=== PATIENT | female | born 1995 | race Caucasian/White ===

== ENCOUNTER 2016-10-22 09:37 | Day surgery (SDC) | payer OTHER ==
[2016-10-17 10:18] VITALS: BMI 39.1
[~2016-10-22 09:37] MED LIST: CLINDAMYCIN 600 MG in DEXTROSE 5% IN WATER 50 ML IVPB ONE; DEXAMETHASONE SOD PHOSPHATE 10 MG/ML 1 ML VIAL IV ONE; DEXAMETHASONE SOD PHOSPHATE 4 MG/ML 1 ML VIAL IV ONE; FAMOTIDINE 20 MG/2 ML VIAL IV ONE; HYDROmorphone 1 MG/ML 1 ML SYRINGE IVP PRN; LACTATED RINGERS 1,000 ML IV SCH; LIDOCAINE 1% 20 ML VIAL (10MG/ML) FOR IV START INTRADERMA PRN; ONDANSETRON 4 MG/2 ML VIAL IVP ONE; SCOPOLAMINE 1.5MG/72HR PATCH TRANSDERM ONE
[2016-10-22] MEDS: OXYMETAZOLINE 0.05% NASL SPRAY 15 ML NASAL ONE ×5 (10:39→11:03)
[2016-10-22] MEDS ORDERED: PROPOFOL 10 MG/ML 20 ML VIAL IV ONE (11:16)
[2016-10-22] MEDS ORDERED: LIDOCAINE 1% INJ 10MG/ML (20 ML MDV) ONE (11:16)
[2016-10-22] MEDS ORDERED: SUCCINYLCHOLINE CHLORIDE 100 MG/5 ML SYR IV ONE (11:16)
[2016-10-22] MEDS ORDERED: fentaNYL (PF) 50 MCG/ML 2 ML AMP ONE (11:16)
[2016-10-22] MEDS ORDERED: MIDAZOLAM 2 MG/2 ML VIAL ONE (11:16)
[2016-10-22] MEDS ORDERED: DEXAMETHASONE SOD PHOS (MDV) 100 MG/10 ML VIAL ONE (11:16)
[2016-10-22] MEDS ORDERED: LIDOCAINE 1%-EPI 1:100,000 20 ML VIAL SQ ONE (11:36)
--- NOTE | 2016-10-22 11:53 | P.OP ---
Date of Procedure: 10/22/16 Preoperative Diagnosis: Recurrent/chronic sinusitis Inferior turbinate hypertrophy Postoperative Diagnosis: Same Procedure(s) Performed: Left-sided endoscopic sinus surgery with removal of tissue from the left maxillary sinus, left angelito bullectomy Outfracture and submucous resection of the inferior turbinates Anesthesia: DONNIE Surgeon: Abel Del Cid Estimated Blood Loss (ml): 10 Pathology: other (Sinus contents) Condition: stable Disposition: PACU Indications for Procedure: This 21-year-old white female whose had difficulties with chronic and recurrent sinusitis. She did have septoplasty and endoscopic sinus surgery 2 years ago and did improve but has had some recurrent issues with sinusitis. Computed tomography scan showed a small polyps or cysts in the left maxillary sinus recently Operative Findings: Small nasal septal spur to the right, inferior turbinate hypertrophy, left maxillary sinusitis chronic Description of Procedure: The patient was brought in the operative suite and placed in a supine position. The patient underwent induction of general anesthesia with oral endotracheal intubation without difficulty. The patient was prepped and draped in usual aseptic fashion. The orbits were in the operating field for monitoring throughout the case and the computed tomography scan of the sinuses on the computer screen throughout the case for review. 1% lidocaine with 1-100,000 epinephrine was infused submucosally left lateral nasal wall and tip of the middle turbinate. While this was taking vasoconstrictive effect the inferior turbinates were infractured with [place] elevator partial submucous resection inferior turbinates performed with Coblation and therefore ablating a portion of submucosal soft tissue and then outfractured with the [place] elevator. Full 0 endoscopic evaluation performed bilaterally. There is a small septal spur to the right posteriorly however did not appear to be particularly obstructive and the patient did relate that her insurance does not cover septoplasty and she did not want to have this done if it was not covered. The right middle meatus was unremarkable. The left middle turbinate was hypertrophied although not operative a polypoid. A small angelito bullosa cell and therefore the angelito bullectomy was performed with microdebrider on the lateral aspect the maxillary ostium was small with some scarring and therefore this was revised taking care anteriorly not to injure the lacrimal bone. There was a small cyst in the left maxillary sinus which was removed with giraffe forceps under 30 and 70 endoscopic visualization. A small pledget of standard nasal pore nasal dressing was then placed in the left middle meatus. The patient was allowed to emerge from general anesthesia having tolerated procedure well was extended operating suite and transferred postoperative recovery area in satisfactory condition.
[2016-10-22 12:04] VITALS: TEMP 98
[2016-10-22] MEDS ORDERED: HYDROmorphone 1 MG/ML 1 ML SYRINGE IVP ONE (12:11)
[2016-10-22 12:18] VITALS: RESP 18
[2016-10-22 12:48] VITALS: BP 124/78; PULSE 78
== END 2016-10-22 14:12 | disposition home or self-care (01) ==
LOC: OR 09:37
PROVIDERS: ATTEND Otolaryngology
DX: J32.9 Chronic sinusitis, unspecified (principal); J34.3 Hypertrophy of nasal turbinates; Q81.9 Epidermolysis bullosa, unspecified; J34.89 Other specified disorders of nose and nasal sinuses; J34.1 Cyst and mucocele of nose and nasal sinus; J45.909 Unspecified asthma, uncomplicated; F17.200 Nicotine dependence, unspecified, uncomplicated; Z79.899 Other long term (current) drug therapy; Z88.0 Allergy status to penicillin
CPT/HCPCS: 81025; 88305; 30140; 31267; 31240; J2250; J1100 ×2; J2405; J2001; J3010; J1170; J0330; J2704

== ENCOUNTER 2021-06-06 15:17 | Observation (INO) | payer OTHER ==
[2021-06-06] MEDS ORDERED: ONDANSETRON 4 MG/2 ML VIAL IVP STA (15:30)
[2021-06-06] MEDS ORDERED: SODIUM CHLORIDE 0.9% 1,000 ML IV STA (15:30)
[2021-06-06] MEDS ORDERED: KETOROLAC 15 MG/ML 1 ML VIAL IVP STA (15:30)
--- NOTE | 2021-06-06 15:34 | ED ---
Abdominal Pain HPI - General Chief Complaint: Abdominal Pain Stated Complaint: RLQ pain Time Seen by Provider: 06/06/21 15:23 Source: patient, family, RN notes reviewed Mode of arrival: ambulatory Limitations: no limitations - History of Present Illness Initial Comments: Well-appearing 26-year-old female alert and oriented 4, presents to the emergency room with right lower quadrant pain that woke her today. She states it is crampy in nature and 7 out of 10 pain. She states that she did have cereal this morning but now feels nauseated. She denies any vomiting. Last bowel movement was today and normal. She is denying any vaginal bleeding. Sta smiley her last menstrual period was last week. She states she does have a history of ovarian cysts. She denies . Denies any abdominal surgeries. MD Complaint: abdominal pain -: hour(s) (6) Location: RLQ Radiation: none Severity scale (1-10): 7 Quality: cramping Consistency: constant Improves With: nothing Worsens With: other (Patient) Associated Symptoms: nausea - Related Data LMP (females 10-50): last week Home Medications Medication Instructions Recorded Confirmed Albuterol Sulfate [Ventolin HFA] 2 puff INHALATION RT-Q4H PRN 02/25/16 06/06/21 Levonorgestrel-Ethin Estradiol 1 tab PO HS 02/25/16 06/06/21 [Lutera-28 Tablet] Dextroamphetamine/Amphetamine 20 mg PO BID 10/17/16 06/06/21 [Adderall] Ergocalciferol [Vitamin D2 (1250 1,250 mcg PO Q30D 06/06/21 06/06/21 Mcg = 13917 Iu)] Allergies Allergy/AdvReac Type Severity Reaction Status Date / Time Penicillins Allergy Unknown Rash/Hives Verified 06/06/21 16:08 Review of Systems ROS Statement: Those systems with pertinent positive or pertinent negative responses have been documented in the HPI. ROS Other: All systems not noted in ROS Statement are negative. Past Medical History Past Medical History: Asthma History of Any Multi-Drug Resistant Organisms: None Reported Past Surgical History: No Surgical Hx Reported Additional Past Surgical History / Comment(s): nasal surgery Past Anesthesia/Blood Transfusion Reactions: No Reported Reaction Past Psychological History: ADD/ADHD Past Alcohol Use History: None Reported Past Drug Use History: None Reported - Past Family History Mother Family Medical History: No Reported History General Exam Limitations: no limitations General appearance: alert, in no apparent distress Head exam: Present: atraumatic, normocephalic, normal inspection Eye exam: Present: normal appearance, PERRL, EOMI. Absent: scleral icterus, conjunctival injection, periorbital swelling ENT exam: Present: normal exam, normal oropharynx, mucous membranes moist Neck exam: Present: normal inspection, full ROM. Absent: tenderness, meningismus, lymphadenopathy, thyromegaly Respiratory exam: Present: normal lung sounds bilaterally. Absent: respiratory distress, wheezes, rales, rhonchi, stridor, accessory muscle use, decreased breath sounds Cardiovascular Exam: Present: regular rate, normal rhythm, normal heart sounds. Absent: systolic murmur, diastolic murmur, rubs, gallop, clicks GI/Abdominal exam: Present: soft, tenderness (Right lower quadrant), normal bowel sounds. Absent: distended, guarding, rebound, rigid Extremities exam: Present: normal inspection, full ROM, normal capillary refill. Absent: tenderness, pedal edema, joint swelling, calf tenderness Back exam: Present: normal inspection, full ROM, CVA tenderness (R). Absent: tenderness, CVA tenderness (L), muscle spasm, paraspinal tenderness, vertebral tenderness, rash noted Neurological exam: Present: alert, oriented X3, CN II-XII intact Psychiatric exam: Present: normal affect, normal mood Skin exam: Present: warm, dry, intact, normal color. Absent: rash Course Vital Signs 06/06/21 15:19 Temperature 98.2 F Pulse Rate 64 Respiratory 18 Rate Blood Pressure 135/93 O2 Sat by Pulse 98 Oximetry Medical Decision Making - Medical Decision Making Patient's WBC count is 14.8 with a neutrophil count of 11.9. Her urinalysis is negative for infection and she is urine negative. Electrolytes are unremarkable. Abdominal ultrasound was unable to visualize the appendix with large body habitus. Ultrasound transvaginal shows bilateral ovarian cysts and free fluid posterior cul-de-sac measuring 3.8 cm. Right ovarian cyst 2.8 x 1.9 x 2.4, left ovarian cyst 2.7 x 2.1 x 1.9. No evidence of ovarian torsion. CT the abdomen and pelvis shows concerns for acute appendicitis. There is a low attenuated collection the base of the appendix which may represent a small abscess versus phlegmon. Dr Piña notified, pt to be admitted for appendicit is, antibiotics started. Pt states pain better after morphine. - Lab Data Result diagrams: 06/06/21 15:47 06/06/21 15:47 Lab Results 06/06/21 06/06/21 06/06/21 Range/Units 15:47 15:47 15:47 WBC 14.8 H (3.8-10.6) k/uL RBC 4.63 (3.80-5.40) m/uL Hgb 14.5 (11.4-16.0) gm/dL Hct 41.1 (34.0-46.0) % MCV 88.9 (80.0-100.0) fL MCH 31.3 (25.0-35.0) pg MCHC 35.2 (31.0-37.0) g/dL RDW 13.0 (11.5-15.5) % Plt Count 426 (150-450) k/uL MPV 7.5 Neutrophils % 80 % Lymphocytes % 11 % Monocytes % 4 % Eosinophils % 4 % Basophils % 1 % Neutrophils # 11.9 H (1.3-7.7) k/uL Lymphocytes # 1.6 (1.0-4.8) k/uL Monocytes # 0.5 (0-1.0) k/uL Eosinophils # 0.6 (0-0.7) k/uL Basophils # 0.1 (0-0.2) k/uL Sodium (137-145) mmol/L Potassium (3.5-5.1) mmol/L Chloride (98-107) mmol/L Carbon Dioxide (22-30) mmol/L Anion Gap mmol/L BUN (7-17) mg/dL Creatinine (0.52-1.04) mg/dL Est GFR (CKD-EPI)AfAm (>60 ml/min/1.73 sqM) Est GFR (CKD-EPI)NonAf (>60 ml/min/1.73 sqM) Glucose (74-99) mg/dL Calcium (8.4-10.2) mg/dL Total Bilirubin (0.2-1.3) mg/dL AST (14-36) U/L ALT (4-34) U/L Alkaline Phosphatase (38-126) U/L Total Protein (6.3-8.2) g/dL Albumin (3.5-5.0) g/dL Amylase (30-110) U/L Lipase (23-300) U/L Urine Color Yellow Urine Appearance Clear (Clear) Urine pH 6.0 (5.0-8.0) Ur Specific [place] 1.016 (1.001-1.035) Urine Protein Negative (Negative) Urine Glucose (UA) Negative (Negative) Urine Ketones Negative (Negative) Urine Blood Negative (Negative) Urine Nitrite Negative (Negative) Urine Bilirubin Negative (Negative) Urine Urobilinogen <2.0 (<2.0) mg/dL Ur Leukocyte Esterase Negative (Negative) Urine HCG, Qual Not Detected (Not Detectd) 06/06/21 Range/Units 15:47 WBC (3.8-10.6) k/uL RBC (3.80-5.40) m/uL Hgb (11.4-16.0) gm/dL Hct (34.0-46.0) % MCV (80.0-100.0) fL MCH (25.0-35.0) pg MCHC (31.0-37.0) g/dL RDW (11.5-15.5) % Plt Count (150-450) k/uL MPV Neutrophils % % Lymphocytes % % Monocytes % % Eosinophils % % Basophils % % Neutrophils # (1.3-7.7) k/uL Lymphocytes # (1.0-4.8) k/uL Monocytes # (0-1.0) k/uL Eosinophils # (0-0.7) k/uL Basophils # (0-0.2) k/uL Sodium 137 (137-145) mmol/L Potassium 4.5 (3.5-5.1) mmol/L Chloride 109 H (98-107) mmol/L Carbon Dioxide 19 L (22-30) mmol/L Anion Gap 9 mmol/L BUN 8 (7-17) mg/dL Creatinine 0.64 (0.52-1.04) mg/dL Est GFR (CKD-EPI)AfAm >90 (>60 ml/min/1.73 sqM) Est GFR (CKD-EPI)NonAf >90 (>60 ml/min/1.73 sqM) Glucose 105 H (74-99) mg/dL Calcium 9.6 (8.4-10.2) mg/dL Total Bilirubin 0.5 (0.2-1.3) mg/dL AST 23 (14-36) U/L ALT 14 (4-34) U/L Alkaline Phosphatase 80 (38-126) U/L Total Protein 6.8 (6.3-8.2) g/dL Albumin 3.9 (3.5-5.0) g/dL Amylase 53 (30-110) U/L Lipase 26 (23-300) U/L Urine Color Urine Appearance (Clear) Urine pH (5.0-8.0) Ur Specific [place] (1.001-1.035) Urine Protein (Negative) Urine Glucose (UA) (Negative) Urine Ketones (Negative) Urine Blood (Negative) Urine Nitrite (Negative) Urine Bilirubin (Negative) Urine Urobilinogen (<2.0) mg/dL Ur Leukocyte Esterase (Negative) Urine HCG, Qual (Not Detectd) Disposition Clinical Impression: Acute appendicitis Disposition: ADMITTED IP TO THIS [facility] Condition: Good Referrals: Jerad Rosenberg MD [Primary Care Provider] - 1-2 days Decision Date: 06/06/21 Decision Time: 20:03
[2021-06-06 15:54] LABS: Basophils # (A) 0.1 k/uL (0-0.2); Basophils % (A) 1 %; Eosinophils # (A) 0.6 k/uL (0-0.7); Eosinophils % (A) 4 %; HCT 41.1 % (34.0-46.0); HGB 14.5 gm/dL (11.4-16.0); Lymphocytes # (A) 1.6 k/uL (1.0-4.8); Lymphocytes % (A) 11 %; MCH 31.3 pg (25.0-35.0); MCHC 35.2 g/dL (31.0-37.0); MCV 88.9 fL (80.0-100.0); Mean Platelet Volume 7.5; Monocytes # (A) 0.5 k/uL (0-1.0); Monocytes % (A) 4 %; Neutrophils # (A) 11.9 k/uL (1.3-7.7); Neutrophils % (A) 80 %; Platelet Count 426 k/uL (150-450); RBC 4.63 m/uL (3.80-5.40); WBC 14.8 k/uL (3.8-10.6)
[2021-06-06 16:05] LABS: ALT 14 U/L (4-34); AST 23 U/L (14-36); African American GFR (CKD) >90 (>60 ml/min/1.73 sqM); Albumin 3.9 g/dL (3.5-5.0); Alkaline Phosphatase 80 U/L (38-126); Amylase 53 U/L (30-110); Anion Gap 9 mmol/L; Blood Urea Nitrogen 8 mg/dL (7-17); Calcium 9.6 mg/dL (8.4-10.2); Carbon Dioxide 19 mmol/L (22-30); Chloride 109 mmol/L (98-107); Glucose 105 mg/dL (74-99); Lipase 26 U/L (23-300); Non-African American GFR(CKD) >90 (>60 ml/min/1.73 sqM); Potassium 4.5 mmol/L (3.5-5.1); Sodium 137 mmol/L (137-145); Total Bilirubin 0.5 mg/dL (0.2-1.3); Total Protein 6.8 g/dL (6.3-8.2)
[2021-06-06 16:15] LABS: Appearance,Urine Clear (Clear); Bilirubin,Urine Negative (Negative); Blood,Urine Negative (Negative); Color,Urine Yellow; Glucose,Urine (UA) Negative (Negative); Ketones,Urine Negative (Negative); Leukocyte Esterase,Urine Negative (Negative); Nitrite,Urine Negative (Negative); Protein,Urine Negative (Negative); Specific Gravity,Urine 1.016 (1.001-1.035); Urobilinogen,Urine <2.0 mg/dL (<2.0)
--- NOTE | 2021-06-06 16:42 | US ---
EXAMINATION TYPE: US abdomen APPY DATE OF EXAM: 06/06/2021 COMPARISON: NONE CLINICAL HISTORY: APPY. Pt states RLQ pain x 1 day APPENDIX Unable to visualize appendix with certainty due to large pt body habitus IMPRESSION: Nondiagnostic evaluation.
--- NOTE | 2021-06-06 16:49 | US ---
EXAMINATION TYPE: US transvaginal DATE OF EXAM: 06/06/2021 COMPARISON: US CLINICAL HISTORY: rlq pain, torsion vs appy. PLQ pain x 1 day TECHNIQUE: Transvaginal (TV). Transvaginal sonographic images of the pelvis were acquired. : Date of LMP: 06/02/2021 EXAM MEASUREMENTS: Uterus: 4.3 x 2.4 x 2.8 cm Endometrial Stripe: 0.1 cm Right Ovary: 4.1 x 2.2 x 3.3 cm Left Ovary: 3.5 x 2.3 x 2.6 cm 1. Uterus: Anteverted wnl 2. Endometrium: wnl 3. Right Ovary: Cyst= 2.8 x 1.9 x 2.4 cm 4. Left Ovary: Cyst= 2.7 x 2.1 x 1.9 Spectral, color and waveform doppler imaging shows good arterial and venous flow within the ovaries ; there is no evidence for ovarian torsion. 5. Bilateral Adnexa: wnl 6. Posterior cul-de-sac: Free fluid present= 3.8 cm in transverse measurement IMPRESSION: Bilateral ovarian cysts and free fluid as noted above.
[2021-06-06] MEDS ORDERED: MORPHINE SULFATE 2 MG/ML SYRINGE IVP ONE (19:13)
--- NOTE | 2021-06-06 19:49 | CT ---
EXAMINATION TYPE: CT abdomen pelvis w con DATE OF EXAM: 06/06/2021 HISTORY: RLQ pain, concern for appy CT DLP: 1708.1mGycm Automated Exposure Control for Dose Reduction was Utilized. CONTRAST: CT scan of the abdomen and pelvis is performed with IV Contrast, patient injected with 100 mL of Isov ue 300. COMPARISON: 08/30/2010 FINDINGS: LUNG BASES: No significant abnormality is appreciated. INCLUDED CARDIAC STRUCTURES: Unremarkable LIVER: No significant abnormality is appreciated. GALLBLADDER : No significant abnormality is appreciated. BILIARY TREE: No abnormal biliary tree dilation. PANCREAS: No significant abnormality is seen. SPLEEN: No significant abnormality is seen. ADRENALS: No significant abnormality is seen. KIDNEYS AND URETERS: No significant abnormality is seen. URINARY BLADDER: No significant abnormality is appreciated. ESOPHAGUS: No significant abnormality is seen. STOMACH: No significant abnormality is seen. SMALL BOWEL: No significant abnormality is seen. LARGE BOWEL: No significant abnormality is seen. APPENDIX: The appendix is heterogeneous and thickened and there are surrounding inflammatory changes and enlarged lymph nodes in the right lower quadrant. No definite phlebolith identified. Heterogeneou s low attenuating collection in the right lower quadrant could represent small abscesses. HERNIAS: No significant abnormality is seen. UTERUS/ADNEXA: There is a 3.5 cm cyst in the right adnexal/ovarian in. PERITONEUM/MESENTRY: No pneumoperitoneum. Small amount of fluid is seen in the pelvis, likely physiol ogical related to adnexa/ovaries. LYMPH NODES: No enlarged retroperitoneal or pelvic lymph nodes are appreciated. MAJOR VASCULAR STRUCTURES: Nonaneurysmal aorta. Unremarkable inferior vena cava. OSSEOUS STRUCTURES: No significant abnormality is seen. IMPRESSION: Findings concerning for acute appendicitis. Heterogeneous low attenuating collection at the base of t he appendix, may represent small abscess versus phlegmon.
[2021-06-06] MEDS ORDERED: NALOXONE 0.4 MG/ML 1 ML VIAL IV PRN (20:05)
[2021-06-06] MEDS ORDERED: SUCCINYLCHOLINE CHLORIDE 100 MG/5 ML SYR IV ONE (21:02)
[2021-06-06] MEDS ORDERED: KETOROLAC 15 MG/ML 1 ML VIAL ONE (21:02)
[2021-06-06] MEDS ORDERED: GLYCOPYRROLATE 0.2 MG/ML 2 ML VIAL ONE (21:02)
[2021-06-06] MEDS ORDERED: PROPOFOL 10 MG/ML 20 ML VIAL IV ONE (21:02)
[2021-06-06] MEDS ORDERED: ONDANSETRON 4 MG/2 ML VIAL ONE (21:02)
[2021-06-06] MEDS ORDERED: ROCURONIUM 10 MG/ML (5 ML VIAL) IV ONE (21:02)
[2021-06-06] MEDS ORDERED: fentaNYL (PF) 50 MCG/ML 2 ML AMP ONE (21:02)
[2021-06-06] MEDS ORDERED: DEXAMETHASONE SOD PHOSPHATE 10 MG/ML 1 ML VIAL ONE (21:02)
[2021-06-06] MEDS ORDERED: NEOSTIGMINE 1 MG/ML 10 ML VIAL ONE (21:02)
[2021-06-06] MEDS: LEVOFLOXACIN 750MG-D5W PMX 750 MG in DEXTROSE/WATER 1 150ML.BAG IVPB STA ×2 (21:02→21:27)
[2021-06-06] MEDS ORDERED: IV FLUID CONTINUATION 1,000 ML IV ONE ×2 (21:02)
[2021-06-06] MEDS ORDERED: MIDAZOLAM 2 MG/2 ML VIAL ONE (21:02)
[2021-06-06] MEDS ORDERED: BUPIVACAINE (PF) 0.5% 30 ML VIAL SQ ONE ×3 (21:10→21:49)
--- NOTE | 2021-06-06 21:29 | P.GSHP ---
History of Present Illness H&P Date: 06/06/21 Chief Complaint: Right lower quadrant pain The 26-year-old female who's had a 24-hour history of right lower quadrant pain. Patient was seen in the emergency room and found have acute appendicitis Past Medical History Past Medical History: Asthma History of Any Multi-Drug Resistant Organisms: None Reported Past Surgical History: No Surgical Hx Reported Additional Past Surgical History / Comment(s): nasal surgery Past Anesthesia/Blood Transfusion Reactions: No Reported Reaction Past Psychological History: ADD/ADHD Past Alcohol Use History: None Reported Past Drug Use History: None Reported - Past Family History Mother Family Medical History: No Reported History Medications and Allergies Home Medications Medication Instructions Recorded Confirmed Type Albuterol Sulfate [Ventolin HFA] 2 puff INHALATION RT-Q4H PRN 02/25/16 06/06/21 History Levonorgestrel-Ethin Estradiol 1 tab PO HS 02/25/16 06/06/21 History [Lutera-28 Tablet] Dextroamphetamine/Amphetamine 20 mg PO BID 10/17/16 06/06/21 History [Adderall] Ergocalciferol [Vitamin D2 (1250 1,250 mcg PO Q30D 06/06/21 06/06/21 History Mcg = 38059 Iu)] Allergies Allergy/AdvReac Type Severity Reaction Status Date / Time Penicillins Allergy Unknown Rash/Hives Verified 06/06/21 16:08 Surgical - Exam Vital Signs Temp Pulse Resp BP Pulse Ox 98.2 F 64 18 135/93 98 06/06/21 15:19 06/06/21 15:19 06/06/21 15:19 06/06/21 15:19 06/06/21 15:19 - General well developed, well nourished, no distress - Eyes PERRL - ENT normal pinna - Neck no masses - Respiratory normal expansion - Cardiovascular Rhythm: regular - Abdomen Abdomen: soft, non tender Results - Labs 06/06/21 15:47 06/06/21 15:47 Abnormal Lab Results - Last 24 Hours (Table) 06/06/21 06/06/21 Range/Units 15:47 15:47 WBC 14.8 H (3.8-10.6) k/uL Neutrophils # 11.9 H (1.3-7.7) k/uL Chloride 109 H (98-107) mmol/L Carbon Dioxide 19 L (22-30) mmol/L Glucose 105 H (74-99) mg/dL Diabetes panel 06/06/21 Range/Units 15:47 Sodium 137 (137-145) mmol/L Potassium 4.5 (3.5-5.1) mmol/L Chloride 109 H (98-107) mmol/L Carbon Dioxide 19 L (22-30) mmol/L BUN 8 (7-17) mg/dL Creatinine 0.64 (0.52-1.04) mg/dL Glucose 105 H (74-99) mg/dL Calcium 9.6 (8.4-10.2) mg/dL AST 23 (14-36) U/L ALT 14 (4-34) U/L Alkaline Phosphatase 80 (38-126) U/L Total Protein 6.8 (6.3-8.2) g/dL Albumin 3.9 (3.5-5.0) g/dL Calcium panel 06/06/21 Range/Units 15:47 Calcium 9.6 (8.4-10.2) mg/dL Albumin 3.9 (3.5-5.0) g/dL Pituitary panel 06/06/21 Range/Units 15:47 Sodium 137 (137-145) mmol/L Potassium 4.5 (3.5-5.1) mmol/L Chloride 109 H (98-107) mmol/L Carbon Dioxide 19 L (22-30) mmol/L BUN 8 (7-17) mg/dL Creatinine 0.64 (0.52-1.04) mg/dL Glucose 105 H (74-99) mg/dL Calcium 9.6 (8.4-10.2) mg/dL Adrenal panel 06/06/21 Range/Units 15:47 Sodium 137 (137-145) mmol/L Potassium 4.5 (3.5-5.1) mmol/L Chloride 109 H (98-107) mmol/L Carbon Dioxide 19 L (22-30) mmol/L BUN 8 (7-17) mg/dL Creatinine 0.64 (0.52-1.04) mg/dL Glucose 105 H (74-99) mg/dL Calcium 9.6 (8.4-10.2) mg/dL Total Bilirubin 0.5 (0.2-1.3) mg/dL AST 23 (14-36) U/L ALT 14 (4-34) U/L Alkaline Phosphatase 80 (38-126) U/L Total Protein 6.8 (6.3-8.2) g/dL Albumin 3.9 (3.5-5.0) g/dL Assessment and Plan Assessment: Acute appendicitis. We'll perform laparoscopic appendectomy
[2021-06-06] MEDS ORDERED: HYDROmorphone 1 MG/ML 1 ML SYRINGE IVP PRN (22:15)
--- NOTE | 2021-06-06 22:15 | P.OP ---
Date of Procedure: 06/06/21 Preoperative Diagnosis: Acute appendicitis Postoperative Diagnosis: Acute appendicitis Procedure(s) Performed: Laparoscopic appendectomy Anesthesia: DONNIE Surgeon: Gatito Piña Estimated Blood Loss (ml): 5 Pathology: other (Appendix) Condition: stable Disposition: PACU Description of Procedure: The patient's placed on the operating table in the supine position. The patient received general anesthesia. The abdomen was prepped and draped in the usual sterile fashion. The skin was anesthetized 1% local Xylocaine at the trocar sites. Using an 11 blade the skin was incised at the umbilicus. The umbilicus was grasped with a [place] clamp and then a Veress needle was placed into the peritoneal cavity. Position of the Veress needle was confirmed with positive drop test. After adequate insufflation a 5 mm trocar was placed into the peritoneal cavity. The abdomen was further insufflated. And then the laparoscope was placed in the peritoneal cavity. Next a 5 mm trocar was placed in the midline suprapubic position. And then a 10 mm trocar was placed in the midline epigastric position. The patient was rotated with the right side up and in Trendelenburg. The appendix was visualized. The appendix appeared to be inflamed. The appendix was grasped and then using the Harmonic scissors the mesoappendix was divided. A PDS Endoloop was then placed around the base of the appendix. And then the appendix was divided using Harmonic scissors. The appendix was placed into an Endo Catch and brought out through the 10 mm trocar site. The abdomen was irrigated. There is no bleeding seen. The trochars withdrawn. The skin was closed interrupted 3-0 Monocryl suture. Dermabond dressing was applied. Patient was sent to recovery room in stable condition.
[2021-06-06] MEDS ORDERED: ONDANSETRON 4 MG TAB PO PRN (22:16)
[2021-06-06] MEDS: SODIUM CHLORIDE 0.9% 1,000 ML IV SCH ×2 (22:29→22:53)
[2021-06-06] MEDS: metroNIDAZOLE-NS PMX 500 MG in SALINE 1 100ML.BAG IVPB STA ×2 (22:30→22:53)
[2021-06-07] MEDS: ENOXAPARIN 40 MG/0.4 ML SYRINGE SQ SCH (08:44)
[2021-06-07] MEDS: HYDROcodone/APAP 5-325MG 1 EACH TAB PO PRN ×2 (08:56→13:04)
[2021-06-07] MEDS: SODIUM CHLORIDE 0.9% 1,000 ML IV SCH ×2 (08:57→19:26)
[2021-06-07 09:00] LABS: African American GFR (CKD) >90 (>60 ml/min/1.73 sqM); Anion Gap 8 mmol/L; Blood Urea Nitrogen 9 mg/dL (7-17); Calcium 8.9 mg/dL (8.4-10.2); Carbon Dioxide 16 mmol/L (22-30); Chloride 112 mmol/L (98-107); Glucose 134 mg/dL (74-99); Non-African American GFR(CKD) >90 (>60 ml/min/1.73 sqM); Potassium 4.7 mmol/L (3.5-5.1); Sodium 136 mmol/L (137-145)
[2021-06-07 09:23] LABS: Basophils # (A) 0.1 k/uL (0-0.2); Basophils % (A) 0 %; Eosinophils # (A) 0.2 k/uL (0-0.7); Eosinophils % (A) 1 %; HCT 35.4 % (34.0-46.0); HGB 12.6 gm/dL (11.4-16.0); Lymphocytes # (A) 0.5 k/uL (1.0-4.8); Lymphocytes % (A) 3 %; MCH 33.4 pg (25.0-35.0); MCHC 35.5 g/dL (31.0-37.0); Mean Platelet Volume 8.2; Monocytes # (A) 0.5 k/uL (0-1.0); Monocytes % (A) 3 %; Neutrophils # (A) 14.9 k/uL (1.3-7.7); Neutrophils % (A) 92 %; Platelet Count 287 k/uL (150-450); RBC 3.76 m/uL (3.80-5.40); WBC 16.1 k/uL (3.8-10.6)
[2021-06-07 09:27] LABS: MCV 94.1 fL (80.0-100.0)
--- NOTE | 2021-06-07 12:06 | P.PN ---
Subjective Progress Note Date: 06/07/21 CHIEF COMPLAINT: Abdominal pain HISTORY OF PRESENT ILLNESS: Patient is status post left endoscopic appendectomy. Postop day #1. Patient reports her abdominal pain is improved since surgery. She denies any nausea or vomiting. She tolerated a full liquid diet. She's afebrile. WBC is up at 16.1 PHYSICAL EXAM: VITAL SIGNS: Reviewed. GENERAL: Well-developed in no acute distress. HEENT: No sclera icterus. Extraocular movements grossly intact. Moist buccal mucosa. Head is atraumatic, normocephalic. ABDOMEN: Soft. Nondistended. Incision sites clean dry and intact NEUROLOGIC: Alert and oriented. Cranial nerves II through XII grossly intact. ASSESSMENT: 1. Acute appendicitis with perforation status post laparoscopic appendectomy PLAN: -Start full liquid diet -Continue levaquin -Add flagyl due to increase in WBC -Continue pain medication as needed -Encourage patient to ambulate -Encourage patient to use incentive spirometer -Possible discharge home tomorrow depending on patient's WBC -GI prophylaxis Protonix and DVT prophylaxis Lovenox Physician Employment Services Director note has been reviewed by physician. Signing provider agrees with the documented findings, assessment, and plan of care. Objective - Vital Signs Vital signs: Vital Signs Temp 98.4 F 06/07/21 07:00 Pulse 56 L 06/07/21 08:00 Resp 17 06/07/21 08:00 BP 110/71 06/07/21 07:00 Pulse Ox 97 06/07/21 07:00 Intake & Output 06/06/21 06/07/21 06/07/21 18:59 06:59 18:59 Intake Total 1550 Output Total 5 Balance 1545 Weight 99.79 kg 99.79 kg Intake: IV 1550 Output: Estimated Blood Loss 5 Other: Voiding Method Toilet Toilet # Voids 1 1 - Labs CBC & Chem 7: 06/07/21 08:31 06/07/21 08:31 Labs: Abnormal Lab Results - Last 24 Hours (Table) 06/06/21 06/06/21 06/07/21 Range/Units 15:47 15:47 08:31 WBC 14.8 H 16.1 H (3.8-10.6) k/uL RBC 3.76 L (3.80-5.40) m/uL Neutrophils # 11.9 H 14.9 H (1.3-7.7) k/uL Lymphocytes # 0.5 L (1.0-4.8) k/uL Sodium (137-145) mmol/L Chloride 109 H (98-107) mmol/L Carbon Dioxide 19 L (22-30) mmol/L Glucose 105 H (74-99) mg/dL 06/07/21 Range/Units 08:31 WBC (3.8-10.6) k/uL RBC (3.80-5.40) m/uL Neutrophils # (1.3-7.7) k/uL Lymphocytes # (1.0-4.8) k/uL Sodium 136 L (137-145) mmol/L Chloride 112 H (98-107) mmol/L Carbon Dioxide 16 L (22-30) mmol/L Glucose 134 H (74-99) mg/dL
[2021-06-07] MEDS: PANTOPRAZOLE 40 MG TABLET PO SCH (12:57)
[2021-06-07] MEDS ORDERED: ALBUTEROL SULFATE INHALATION PRN (15:06)
[2021-06-07] MEDS: metroNIDAZOLE-NS PMX 500 MG in SALINE 1 100ML.BAG IVPB SCH (16:20)
[2021-06-07] MEDS: LACTATED RINGERS 1,000 ML IV SCH ×2 (17:34→19:27)
--- NOTE | 2021-06-07 20:21 | PN ---
PROGRESS NOTE DATE OF SERVICE: 06/07/2021 CHIEF COMPLAINT: Status post appendectomy. HISTORY OF PRESENT ILLNESS: This lady is doing well and she is eating. She has had no nausea, vomiting, fever, chills, etc. PHYSICAL EXAMINATION: Color is good. She is awake and alert. Head, ears, eyes, nose, mouth and throat were normal. The chest is clear. Cardiac exam is normal. Abdomen is soft, nontender and bowel sounds are present. IMPRESSION: Status post appendectomy. PLAN: Progress activity and diet. MMODL / IJN: [id number] /
--- NOTE | 2021-06-07 20:25 | CONS ---
CONSULTATION CHIEF COMPLAINT: Abdominal pain. HISTORY OF PRESENT ILLNESS: This is the first known admission for this 26-year-old white female. She started to develop abdominal pain in the afternoon, and by early in the evening it had localized in the right lower quadrant. She came to the hospital, where she was diagnosed as having acute appendicitis and was taken to the operating room. REVIEW OF SYSTEMS: She has had no headaches, chest pain, nausea, fever, chills, diarrhea, constipation, urinary complaints, etc. Past medical history, family history, and personal and social histories reveal her ALLERGY TO PENICILLIN. She uses ProAir for asthma and she is on Adderall and a control pill. History is unremarkable otherwise. She does smoke. PHYSICAL EXAMINATION: Blood pressure 122/70, pulse of 88, respirations of 18 and temperature 99. In general she appeared to be overweight but in no acute distress. Skin color is normal. Skin is warm and dry. Lymph nodes are not enlarged. Head, ears, eyes, nose and mouth were normal and neck veins were not distended. Thyroid is not enlarged. Chest is clear. Cardiac exam is normal. The abdomen is slightly protuberant, soft, and bowel sounds are heard. Extremities are normal. Neurologically she is intact. She is admitted to the hospital with the diagnoses: 1. Acute appendicitis. 2. Attention deficit disorder. 3. Nicotine use. RECOMMENDATIONS: None at this time. Thank you. Respectfully, Jerad Rosenberg II, M.D. FERNANDO / ODALYS: [id number] /
[2021-06-07] MEDS ORDERED: LEVONORGESTREL ETHIN ESTRADIOL PO SCH (21:00)
[2021-06-07] MEDS ORDERED: LEVOFLOXACIN 500MG-D5W PMX 500 MG in DEXTROSE/WATER 1 100ML.BAG IVPB SCH (21:00)
[2021-06-08] MEDS: HYDROcodone/APAP 5-325MG 1 EACH TAB PO PRN ×2 (00:01→08:02)
[2021-06-08 01:45] VITALS: PULSE 65; TEMP 98.3
[2021-06-08 07:02] LABS: African American GFR (CKD) >90 (>60 ml/min/1.73 sqM); Anion Gap 6 mmol/L; Blood Urea Nitrogen 11 mg/dL (7-17); Calcium 8.8 mg/dL (8.4-10.2); Carbon Dioxide 20 mmol/L (22-30); Chloride 111 mmol/L (98-107); Glucose 93 mg/dL (74-99); Non-African American GFR(CKD) >90 (>60 ml/min/1.73 sqM); Sodium 137 mmol/L (137-145)
[2021-06-08 07:39] VITALS: BP 117/74; RESP 16
[2021-06-08] MEDS: ENOXAPARIN 40 MG/0.4 ML SYRINGE SQ SCH (07:59)
[2021-06-08] MEDS: metroNIDAZOLE-NS PMX 500 MG in SALINE 1 100ML.BAG IVPB SCH ×2 (07:59)
[2021-06-08] MEDS: PANTOPRAZOLE 40 MG TABLET PO SCH (08:00)
[2021-06-08 08:51] LABS: Basophils # (A) 0.03 X 10*3/uL (0.00-0.10); Basophils % (A) 0.3 %; Eosinophils # (A) 0.02 X 10*3/uL (0.04-0.35); Eosinophils % (A) 0.2 %; HCT 32.2 % (37.2-46.3); HGB 10.4 g/dL (12.0-15.0); Lymphocytes # (A) 1.04 X 10*3/uL (0.90-5.00); Lymphocytes % (A) 11.3 %; MCH 30.1 pg (27.0-32.0); MCHC 32.3 g/dL (32.0-37.0); MCV 93.3 fL (80.0-97.0); Monocytes # (A) 0.45 X 10*3/uL (0.20-1.00); Monocytes % (A) 4.9 %; Neutrophils % (A) 82.8 %; Platelet Count 245 X 10*3/uL (140-440); RBC 3.45 X 10*6/uL (4.10-5.20); RDW 12.9 % (11.5-14.5); WBC 9.19 X 10*3/uL (4.50-10.00)
[2021-06-08] MEDS: SODIUM CHLORIDE 0.9% 1,000 ML IV SCH (11:22)
--- NOTE | 2021-06-08 11:31 | P.DS ---
Providers Date of admission: 06/06/21 20:07 Expected date of discharge: 06/08/21 Attending physician: Gatito Piña Consults: 06/06/21 22:17 Consult Physician Routine Consulting Provider: Jerad Rosenberg Consult Reason/Comments: Medical management Do you want consulting provider notified?: Yes Primary care physician: Jerad Rosenberg Hospital Course: This is a 26-year-old female underwent laparoscopic appendectomy for acute appendicitis. Please hospital chart for details. Procedures: Laparoscopic appendectomy Patient Condition at Discharge: Good Plan - Discharge Summary Discharge Rx Participant: No New Discharge Prescriptions: New Levofloxacin [Levaquin] 500 mg PO DAILY 7 Days #1 tab Ibuprofen [Motrin] 600 mg PO Q6HR PRN #40 tab PRN Reason: Pain Docusate [Colace] 100 mg PO BID #20 capsule oxyCODONE HCL [OxyIR] 5 mg PO Q6H PRN 3 Days #10 tab PRN Reason: Pain Acetaminophen Tab [Tylenol] 650 mg PO Q6H #30 tab No Action Levonorgestrel-Ethin Estradiol [Lutera-28 Tablet] 1 tab PO HS Albuterol Sulfate [Ventolin HFA] 2 puff INHALATION RT-Q4H PRN PRN Reason: Dyspnea Dextroamphetamine/Amphetamine [Adderall] 20 mg PO BID Ergocalciferol [Vitamin D2 (1250 Mcg = 02099 Iu)] 1,250 mcg PO Q30D Discharge Medication List Albuterol Sulfate [Ventolin HFA] 2 puff INHALATION RT-Q4H PRN 02/25/16 [History] Levonorgestrel-Ethin Estradiol [Lutera-28 Tablet] 1 tab PO HS 02/25/16 [History] Dextroamphetamine/Amphetamine [Adderall] 20 mg PO BID 10/17/16 [History] Ergocalciferol [Vitamin D2 (1250 Mcg = 76352 Iu)] 1,250 mcg PO Q30D 06/06/21 [History] Acetaminophen Tab [Tylenol] 650 mg PO Q6H #30 tab 06/08/21 [Rx] Docusate [Colace] 100 mg PO BID #20 capsule 06/08/21 [Rx] Ibuprofen [Motrin] 600 mg PO Q6HR PRN #40 tab 06/08/21 [Rx] Levofloxacin [Levaquin] 500 mg PO DAILY 7 Days #1 tab 06/08/21 [Rx] oxyCODONE HCL [OxyIR] 5 mg PO Q6H PRN 3 Days #10 tab 06/08/21 [Rx] Follow up Appointment(s)/Referral(s): Jerad Rosenberg MD [Primary Care Provider] - 1-2 days Gatito Piña MD [STAFF PHYSICIAN] - 1 Week
--- NOTE | 2021-06-08 15:29 | PN ---
PROGRESS NOTE DATE OF SERVICE: 06/08/2021 CHIEF COMPLAINT: Status post appendectomy. HISTORY OF PRESENT ILLNESS: This lady is doing fairly well. She is not running a fever. She is not having a great deal of pain. PHYSICAL EXAMINATION: Her chest is clear. Cardiac exam is normal. Abdomen is soft, nontender. IMPRESSION: Status post appendectomy with reported perforation. PLAN: No change in program at this time. MMODL / IJN: [id number] /
== END 2021-06-08 12:15 ==
LOC: EC 15:17 → 6NMEDSUR 20:07
PROVIDERS: ADMIT Surgery; ATTEND Surgery
DX: K35.80 Unspecified acute appendicitis (principal); J45.909 Unspecified asthma, uncomplicated; F90.9 Attention-deficit hyperactivity disorder, unspecified type; N83.201 Unspecified ovarian cyst, right side; N83.202 Unspecified ovarian cyst, left side; F17.210 Nicotine dependence, cigarettes, uncomplicated; E66.3 Overweight; Z68.41 Body mass index [BMI] 40.0-44.9, adult; Z79.3 Long term (current) use of hormonal contraceptives; Z79.899 Other long term (current) drug therapy; Z88.0 Allergy status to penicillin; Z98.890 Other specified postprocedural states
CPT/HCPCS: 44970; 96374; 96375; 99285; 36415; 88304; 80053; 80048 ×2; 82150; 83690; 85025 ×3; 81003; 81025; 87040; 93975; 76705; 76830; 74177; G0378 ×3; J2250; J1100; J2710; J2405; J1956 ×2; J1650 ×2; J3010; J2270; J1170; J1885; J0330; J2704; Q9967

== ENCOUNTER 2021-07-09 09:12 | Emergency (ER) | payer OTHER ==
[2021-07-09 09:27] VITALS: BP 124/67; PULSE 92; RESP 22; TEMP 99.2
[2021-07-09] MEDS ORDERED: ONDANSETRON ODT 4 MG TAB PO STA (10:03)
--- NOTE | 2021-07-09 10:03 | ED ---
URI HPI - General Chief Complaint: Upper Respiratory Infection Stated Complaint: cough/sob Time Seen by Provider: 07/09/21 09:35 Source: patient, RN notes reviewed Mode of arrival: ambulatory Limitations: no limitations - History of Present Illness Initial Comments: Patient is 26-year-old female presenting with cough and fever since yesterday. Patient reports shortness of breath that comes in waves, nausea, general weakness. Patient past medical history positive for asthma. She reports relief when taking at home asthma inhaler. Patient states that she is double vaccinated for Covid-19, with no sick contacts. Patient vitals are stable at this time. - Related Data Home Medications Medication Instructions Recorded Confirmed Albuterol Sulfate [Ventolin HFA] 2 puff INHALATION RT-Q4H PRN 02/25/16 07/09/21 Levonorgestrel-Ethin Estradiol 1 tab PO HS 02/25/16 07/09/21 [Lutera-28 Tablet] Dextroamphetamine/Amphetamine 20 mg PO BID 10/17/16 07/09/21 [Adderall] Ergocalciferol [Vitamin D2 (1250 1,250 mcg PO Q30D 06/06/21 07/09/21 Mcg = 40529 Iu)] Previous Rx's Medication Instructions Recorded Benzonatate [Tessalon Perles] 100 mg PO TID PRN #15 cap 07/09/21 Allergies Allergy/AdvReac Type Severity Reaction Status Date / Time Penicillins Allergy Unknown Rash/Hives/ Verified 07/09/21 09:56 diarrhea Review of Systems ROS Statement: Those systems with pertinent positive or pertinent negative responses have been documented in the HPI. ROS Other: All systems not noted in ROS Statement are negative. Past Medical History Past Medical History: Asthma History of Any Multi-Drug Resistant Organisms: None Reported Past Surgical History: No Surgical Hx Reported Additional Past Surgical History / Comment(s): nasal surgery Past Anesthesia/Blood Transfusion Reactions: No Reported Reaction Past Psychological History: ADD/ADHD Smoking Status: Current every day smoker Past Alcohol Use History: None Reported Past Drug Use History: None Reported - Past Family History Mother Family Medical History: No Reported History General Exam Limitations: no limitations General appearance: alert, in no apparent distress Head exam: Present: atraumatic, normocephalic, normal inspection Eye exam: Present: normal appearance, PERRL, EOMI. Absent: scleral icterus, conjunctival injection, periorbital swelling ENT exam: Present: normal exam, mucous membranes moist Neck exam: Present: normal inspection. Absent: tenderness, meningismus, lymphadenopathy Respiratory exam: Present: chest wall tenderness Cardiovascular Exam: Present: regular rate, normal rhythm, normal heart sounds. Absent: systolic murmur, diastolic murmur, rubs, gallop, clicks GI/Abdominal exam: Present: soft, normal bowel sounds. Absent: distended, tenderness, guarding, rebound, rigid Rectal exam: Present: deferred Extremities exam: Present: normal inspection, full ROM, normal capillary refill. Absent: tenderness, pedal edema, joint swelling, calf tenderness Back exam: Present: normal inspection Neurological exam: Present: alert, oriented X3, CN II-XII intact Psychiatric exam: Present: normal affect, normal mood Skin exam: Present: warm, dry, intact, normal color. Absent: rash Course Vital Signs 07/09/21 09:24 Temperature 99.2 F Pulse Rate 92 Respiratory 22 Rate Blood Pressure 124/67 O2 Sat by Pulse 95 Oximetry Medical Decision Making - Medical Decision Making COVID-19 is negative. Patient has a viral URI will be provided cough suppressant will be discharged to days return parameters discussed. - Lab Data Lab Results 07/09/21 Range/Units 10:10 Coronavirus (PCR) Not Detected (Not Detectd) Disposition Clinical Impression: Acute upper respiratory infection Disposition: HOME SELF-CARE Condition: Stable Instructions (If sedation given, give patient instructions): Upper Respiratory Infection (ED) Additional Instructions: Please return to the Emergency Department if symptoms worsen or any other concerns. Prescriptions: Benzonatate [Tessalon Perles] 100 mg PO TID PRN #15 cap PRN Reason: Cough Is patient prescribed a controlled substance at d/c from ED?: No Referrals: Jerad Rosenberg MD [Primary Care Provider] - 1-2 days Time of Disposition: 11:19
== END 2021-07-09 11:34 | disposition home or self-care (01) ==
LOC: EC 09:12
DX: J06.9 Acute upper respiratory infection, unspecified (principal); R11.0 Nausea; R53.1 Weakness; F17.200 Nicotine dependence, unspecified, uncomplicated; J45.909 Unspecified asthma, uncomplicated; Z88.0 Allergy status to penicillin; Z20.822 Contact with and (suspected) exposure to COVID-19
CPT/HCPCS: 87635; 99284

== ENCOUNTER 2023-10-13 09:12 | Emergency (ER) | payer OTHER ==
[2023-10-13 10:14] VITALS: RESP 18; TEMP 98
--- NOTE | 2023-10-13 10:32 | ED ---
General Adult HPI - General Chief complaint: Psychiatric Symptoms Stated complaint: Petitioned-Mental Health Time Seen by Provider: 10/13/23 09:38 Source: patient, RN notes reviewed Mode of arrival: ambulatory Limitations: no limitations - History of Present Illness Initial comments: Patient is a 28-year-old female presenting to the emergency department with depression. Patient admits to having depression. Patient has seen her [facility] worker recently with discussion of weaning off of Effexor and has been doing that. Patient has been frustrated last 2 days. Patient did make statements that she was frustrated however denies wanting to harm herself. Patient denies suicidal or homicidal ideation. No hallucinations. No alcohol or street drug use. No new physical complaints. - Related Data Home Medications Medication Instructions Recorded Confirmed No Known Home Medications 10/13/23 10/13/23 Allergies Allergy/AdvReac Type Severity Reaction Status Date / Time Penicillins Allergy Unknown Rash/Hives/ Verified 10/13/23 13:07 diarrhea Review of Systems ROS Statement: Those systems with pertinent positive or pertinent negative responses have been documented in the HPI. ROS Other: All systems not noted in ROS Statement are negative. Constitutional: Denies: fever Eyes: Denies: eye pain ENT: Denies: ear pain Respiratory: Denies: cough Cardiovascular: Denies: chest pain Endocrine: Denies: fatigue Gastrointestinal: Denies: abdominal pain Psychiatric: Reports: depression. Denies: auditory hallucinations, visual hallucinations, homicidal thoughts, suicidal thoughts Past Medical History Past Medical History: Asthma History of Any Multi-Drug Resistant Organisms: None Reported Past Surgical History: No Surgical Hx Reported Additional Past Surgical History / Comment(s): nasal surgery Past Anesthesia/Blood Transfusion Reactions: No Reported Reaction Past Psychological History: ADD/ADHD Smoking Status: Current every day smoker Past Alcohol Use History: None Reported Past Drug Use History: None Reported - Past Family History Mother Family Medical History: No Reported History General Exam Limitations: no limitations General appearance: alert, in no apparent distress Head exam: Present: normocephalic Eye exam: Present: normal appearance Neck exam: Present: normal inspection Respiratory exam: Present: normal lung sounds bilaterally Cardiovascular Exam: Present: regular rate, normal rhythm GI/Abdominal exam: Present: soft. Absent: tenderness Back exam: Present: normal inspection Neurological exam: Present: alert Psychiatric exam: Present: normal affect, normal mood Skin exam: Present: normal color. Absent: abrasion Course Vital Signs 10/13/23 09:31 Temperature 98 F Pulse Rate 78 Respiratory 18 Rate Blood Pressure 119/82 O2 Sat by Pulse 98 Oximetry Medical Decision Making - Medical Decision Making Was pt. sent in by a medical professional or institution (, PA, [employer], urgent care, hospital, or [facility]...) When possible be specific @ -No Did you speak to anyone other than the patient for history (EMS, parent, family, police, friend...)? What history was obtained from this source @ -No Did you review nursing and triage notes (agree or disagree)? Why? @ -I reviewed and agree with nursing and triage notes Were old charts reviewed (outside hosp., previous admission, EMS record, old EKG, old radiological studies, urgent care reports/EKG's, [facility] records)? Report findings @ -Petition reviewed Differential Diagnosis (chest pain, altered mental status, abdominal pain women, abdominal pain men, vaginal bleeding, weakness, fever, dyspnea, syncope, headache, dizziness, GI bleed, back pain, seizure, CVA, palpatations, mental health, musculoskeletal)? @ -Differential Mental Health Depression, anxiety, bipolar, psychosis, schizophrenia, borderline personality, situational depression, adjustment disorder, behavioral disorder, brain tumor, malingering, substance abuse, encephalopathy, medication reaction, dementia, hypothyroidism, degenerative neurologic disorder, lupus.... This is not meant to be all-inclusive list EKG interpreted by me (3pts min.). @ -As above X-rays interpreted by me (1pt min.). @ -None done CT interpreted by me (1pt min.). @ -None done U/S interpreted by me (1pt. min.). @ -None done What testing was considered but not performed or refused? (CT, X-rays, U/S, labs)? Why? @ -None What meds were considered but not given or refused? Why? @ -None Did you discuss the management of the patient with other professionals (professionals i.e. , [facility], [employer] INSPECTOR, lab, RT, psych nurse, social work instructor, financial aid advisor, teacher, executive officer, case packer and sealer)? Give summary @ -Case was discussed with mental health nurse. With plans for discharge Was smoking cessation discussed for >3mins.? @ -No Was critical care preformed (if so, how long)? @ -No Were there social determinants of health that impacted care today? How? (Homelessness, low income, unemployed, alcoholism, drug addiction, transportation, low edu. Level, literacy, decrease access to med. care, care home, rehab)? @ -No Was there de-escalation of care discussed even if they declined (Discuss DNR or withdrawal of care, Hospice)? DNR status @ -No What co-morbidities impacted this encounter? (DM, HTN, Smoking, COPD, CAD, Cancer, CVA, ARF, Chemo, Hep., AIDS, mental health diagnosis, sleep apnea, morbid obesity)? @ -None Was patient admitted / discharged? Hospital course, mention meds given and route, prescriptions, significant lab abnormalities, going to OR and other pertinent info. @ -Patient denies suicidal ideation. Patient does have established mental health follow-up and this has been confirmed. Patient does contract for safety Undiagnosed new problem with uncertain prognosis? @ -No Drug Therapy requiring intensive monitoring for toxicity (Heparin, Nitro, Insulin, Cardizem)? @ -No Were any procedures done? @ -No Diagnosis/symptom? @ -Depression Acute, or Chronic, or Acute on Chronic? @ -Acute on chronic Uncomplicated (without systemic symptoms) or Complicated (systemic symptoms)? @ -default Side effects of treatment? @ -No Exacerbation, Progression, or Severe Exacerbation? @ -No Poses a threat to life or bodily function? How? (Chest pain, [place], MA, pneumonia, PE, COPD, DKA, ARF, appy, cholecystitis, CVA, Diverticulitis, Homicidal, Suic idal, threat to staff... and all critical care pts) @ -No Disposition Clinical Impression: Depression Disposition: HOME SELF-CARE Condition: Stable Instructions (If sedation given, give patient instructions): Depression (ED) Additional Instructions: Please do follow-up with your primary care physician in the next day or 2 for recent check. Please follow-up with mental health services as directed. Return for thoughts of self-harm, increased depression, worsening symptoms or other concerns. Is patient prescribed a controlled substance at d/c from ED?: No Referrals: Jerad Rosenberg MD [Primary Care Provider] - 1-2 days Time of Disposition: 13:31
[2023-10-13 14:01] VITALS: BP 123/74; PULSE 73
== END 2023-10-13 13:40 | disposition home or self-care (01) ==
LOC: EC 09:12
DX: F32.A Depression, unspecified (principal); J45.909 Unspecified asthma, uncomplicated; F17.200 Nicotine dependence, unspecified, uncomplicated; Z88.0 Allergy status to penicillin
CPT/HCPCS: 82075; 99285